=== PATIENT | male | born 1950 | race Caucasian/White ===

== ENCOUNTER 2020-01-06 09:14 | Outpatient (RCR) | payer MEDICARE, OTHER ==
[~2020-01-06 09:14] MED LIST: FAMO-119 PO; PRD50T PO
== END 2020-01-06 09:55 | disposition home or self-care (01) ==
PROVIDERS: ATTEND Physician Assistant
DX: M54.5 Low back pain (principal)

== ENCOUNTER → 2022-01-21 | Outpatient (CLI) | payer SELFPAY ==
--- NOTE | 2022-01-21 08:57 | Diagnostic Imaging Report ---
INDICATION: Hyperlipidemia. CT coronary calcium study performed with noncontrast images of the heart with calculation of coronary calcium score. Dose reduction protocol was used. The raw data images demonstrate no significant coronary calcifications. There are no enlarged mediastinal or hilar nodes. Thoracic aorta is not aneurysmal. The visualized portions of the lung mendes are clear, the entirety of the lungs are not included on the study. Calculated coronary calcium score was 0 in all territories. IMPRESSION: Unremarkable coronary calcium study. Calcium score was 0. Dictated by: Dictated on workstation # [id number]
== END ==
LOC: RAD FS 08:03
PROVIDERS: ATTEND Family Medicine
DX: E78.5 Hyperlipidemia, unspecified (principal)
CPT/HCPCS: 75571